=== PATIENT | female | born 1950 | race Caucasian/White ===

== ENCOUNTER 2018-04-02 19:35 | Emergency (ER) | payer MEDICARE, OTHER ==
[2018-04-02] MEDS ORDERED: SODIUM CHLORIDE 0.9% 1,000 ML IV STA (19:57)
--- NOTE | 2018-04-02 19:58 | ED ---
General Adult HPI - General Chief complaint: Neuro Symptoms/Deficit Stated complaint: Left facial weakness Time Seen by Provider: 04/02/18 19:48 Source: patient, RN notes reviewed Mode of arrival: wheelchair Limitations: no limitations - History of Present Illness Initial comments: Patient is a pleasant 67-year-old female presenting to the emergency Department with complaints of left facial weakness. Onset of symptoms was yesterday around noon. Symptoms seemed to have worsened since that time. Patient notices when she tries to eat or drink there is some leaking from the left side of her mouth. No confusion. Patient did have a mild frontal headache earlier. Patient has had some chronic neck discomfort for the past several months. No speech problems. No extremity weakness. No paresthesias or loss of sensation. No history of similar symptoms previously. - Related Data Home Medications Medication Instructions Recorded Confirmed Biotin 5 mg PO DAILY 04/02/18 04/02/18 Ibgard 1 tab PO DAILY 04/02/18 04/02/18 L.acidoph,Paracasei, B.lactis 1 cap PO DAILY 04/02/18 04/02/18 [Probiotic] Levothyroxine Sodium 100 mcg PO DAILY 04/02/18 04/02/18 [place] 1 tab PO DAILY 04/02/18 04/02/18 Multivitamins, Thera [Multivitamin 1 tab PO DAILY 04/02/18 04/02/18 (formulary)] Omeprazole 20 mg PO DAILY 04/02/18 04/02/18 Ranitidine HCl [Zantac] 300 mg PO BID 04/02/18 04/02/18 Previous Rx's Medication Instructions Recorded predniSONE 20 mg PO TID #20 tab 04/03/18 valACYclovir HCL [Valtrex] 1 tab PO TID #20 tablet 04/03/18 Allergies Allergy/AdvReac Type Severity Reaction Status Date / Time No Known Allergies Allergy Verified 04/02/18 20:41 Review of Systems ROS Statement: Those systems with pertinent positive or pertinent negative responses have been documented in the HPI. ROS Other: All systems not noted in ROS Statement are negative. Constitutional: Denies: fever Eyes: Reports: other (Left eye does feel dry). Denies: eye pain ENT: Denies: ear pain Respiratory: Denies: cough Cardiovascular: Denies: chest pain Endocrine: Denies: fatigue Gastrointestinal: Denies: abdominal pain Genitourinary: Denies: dysuria Musculoskeletal: Denies: back pain Skin: Denies: rash Neurological: Reports: weakness (Left side of face). Denies: confusion Past Medical History Past Medical History: No Reported History History of Any Multi-Drug Resistant Organisms: None Reported Past Surgical History: Cholecystectomy, Hysterectomy, Orthopedic Surgery Past Psychological History: No Psychological Hx Reported Smoking Status: Never smoker Past Alcohol Use History: None Reported Past Drug Use History: None Reported General Exam Limitations: no limitations General appearance: alert, in no apparent distress Head exam: Present: atraumatic Eye exam: Present: normal appearance, PERRL, EOMI. Absent: nystagmus ENT exam: Present: normal oropharynx Neck exam: Present: normal inspection Respiratory exam: Present: normal lung sounds bilaterally Cardiovascular Exam: Present: regular rate, normal rhythm GI/Abdominal exam: Present: soft. Absent: tenderness Extremities exam: Present: normal inspection Neurological exam: Present: alert, CN II-XII intact (Except for left facial weakness that does include the forehead and eyelid muscles), other (Left facial weakness is present that does involve the forehead). Absent: motor sensory deficit Expanded Neurological exam: Present: protecting the airway Patient oriented to: Present: person, place, time Speech: Present: fluid speech Cranial nerves: EOM's Intact: Normal Cerebellar function: Finger to Nose: Normal Sensory exam: Upper Extremity Light Touch: Normal, Lower Extremity Light Touch: Normal Motor strength exam: RUE: 5, LUE: 5, RLE: 5, LLE: 5 Eye Response: (4) open spontaneously Motor Response: (6) obeys commands Verbal Response: (5) oriented Psychiatric exam: Present: normal affect, normal mood Skin exam: Present: normal color Course Vital Signs 04/02/18 04/02/18 04/02/18 19:37 19:45 20:00 Temperature 97.8 F Pulse Rate 73 60 62 Respiratory 18 18 18 Rate Blood Pressure 174/91 161/72 171/77 O2 Sat by Pulse 99 99 98 Oximetry 04/02/18 22:29 Temperature Pulse Rate 64 Respiratory 17 Rate Blood Pressure 142/81 O2 Sat by Pulse 98 Oximetry Medical Decision Making - Medical Decision Making Patient reevaluated and updated. - Lab Data Result diagrams: 04/02/18 20:45 04/02/18 20:45 Lab Results 04/02/18 04/02/18 04/02/18 Range/Units 20:45 20:45 20:45 WBC 5.3 (3.8-10.6) k/uL RBC 4.50 (3.80-5.40) m/uL Hgb 14.1 (11.4-16.0) gm/dL Hct 42.9 (34.0-46.0) % MCV 95.4 (80.0-100.0) fL MCH 31.4 (25.0-35.0) pg MCHC 32.9 (31.0-37.0) g/dL RDW 13.3 (11.5-15.5) % Plt Count 229 (150-450) k/uL Neutrophils % 64 % Lymphocytes % 25 % Monocytes % 6 % Eosinophils % 3 % Basophils % 1 % Neutrophils # 3.4 (1.3-7.7) k/uL Lymphocytes # 1.3 (1.0-4.8) k/uL Monocytes # 0.3 (0-1.0) k/uL Eosinophils # 0.2 (0-0.7) k/uL Basophils # 0.0 (0-0.2) k/uL PT 9.5 (9.0-12.0) sec INR 1.0 (<1.2) APTT 24.2 (22.0-30.0) sec Sodium 139 (137-145) mmol/L Potassium 4.4 (3.5-5.1) mmol/L Chloride 106 (98-107) mmol/L Carbon Dioxide 26 (22-30) mmol/L Anion Gap 7 mmol/L BUN 19 H (7-17) mg/dL Creatinine 0.86 (0.52-1.04) mg/dL Est GFR (CKD-EPI)AfAm 82 (>60 ml/min/1.73 sqM) Est GFR (CKD-EPI)NonAf 71 (>60 ml/min/1.73 sqM) Glucose 98 (74-99) mg/dL Calcium 9.4 (8.4-10.2) mg/dL Total Bilirubin 0.3 (0.2-1.3) mg/dL AST 25 (14-36) U/L ALT 44 (9-52) U/L Alkaline Phosphatase 108 (38-126) U/L Total Protein 6.2 L (6.3-8.2) g/dL Albumin 3.7 (3.5-5.0) g/dL - Radiology Data Radiology results: report reviewed (Computed tomography scan the brain shows no acute process. CT angiogram of the head and neck shows no acute process) Disposition Clinical Impression: Carter's palsy Disposition: HOME SELF-CARE Condition: Stable Instructions: Carter Palsy (ED) Additional Instructions: Apply Lacri-Lube to left eye every 4 hours while awake and prior to going to bed. Please tape her eye shut at bedtime. These follow-up with primary care physician in the next couple of days for recheck. Prescriptions: predniSONE 20 mg PO TID #20 tab valACYclovir HCL [Valtrex] 1 tab PO TID #20 tablet Is patient prescribed a controlled substance at d/c from ED?: No Referrals: Vesta Dao MD [STAFF PHYSICIAN] - 1-2 days Time of Disposition: 00:07
[2018-04-02 20:55] LABS: Basophils % (A) 1 %; Eosinophils # (A) 0.2 k/uL (0-0.7); Eosinophils % (A) 3 %; HCT 42.9 % (34.0-46.0); HGB 14.1 gm/dL (11.4-16.0); Lymphocytes # (A) 1.3 k/uL (1.0-4.8); Lymphocytes % (A) 25 %; MCH 31.4 pg (25.0-35.0); MCHC 32.9 g/dL (31.0-37.0); MCV 95.4 fL (80.0-100.0); Mean Platelet Volume 6.7; Monocytes # (A) 0.3 k/uL (0-1.0); Monocytes % (A) 6 %; Neutrophils # (A) 3.4 k/uL (1.3-7.7); Neutrophils % (A) 64 %; Platelet Count 229 k/uL (150-450); RDW 13.3 % (11.5-15.5); WBC 5.3 k/uL (3.8-10.6)
[2018-04-02 21:03] LABS: Partial Thromboplastin Time 24.2 sec (22.0-30.0); Prothrombin Time 9.5 sec (9.0-12.0)
[2018-04-02 21:12] LABS: Albumin 3.7 g/dL (3.5-5.0); Calcium 9.4 mg/dL (8.4-10.2); Potassium 4.4 mmol/L (3.5-5.1); Total Bilirubin 0.3 mg/dL (0.2-1.3); Total Protein 6.2 g/dL (6.3-8.2)
--- NOTE | 2018-04-02 23:17 | CT ---
EXAM: CT Head Without Intravenous Contrast CLINICAL HISTORY: ITS.REASON CT Reason: weak TECHNIQUE: Axial computed tomography images of the head/brain without intravenous contrast. CTDI is 59.43 mGy and DLP is 1167.78 mGy-cm. This CT exam was performed using one or more of the following dose reduction techniques: automated exposure control, adjustment of the mA and/or kV according to patient size, and/or use of iterative reconstruction technique. COMPARISON: No relevant prior studies available. FINDINGS: Brain: Unremarkable. No hemorrhage. No significant white matter disease. No edema. Ventricles: Unremarkable. No ventriculomegaly. Bones/joints: Unremarkable. No acute fracture. Soft tissues: Unremarkable. Sinuses: Unremarkable as visualized. No acute sinusitis. Mastoid air cells: Unremarkable as visualized. No mastoid effusion. IMPRESSION: Normal for age.
--- NOTE | 2018-04-02 23:28 | CT ---
EXAM: CT Angiography Head With Intravenous Contrast CLINICAL HISTORY: ITS.REASON CT Reason: weakness TECHNIQUE: Axial computed tomographic angiography images of the head with intravenous contrast using CT angiography protocol. DLP: 451.[address] exam was performed using one or more of the following dose reduction techniques: automated exposure control, adjustment of the mA and/or kV according to patient size, and/or use of iterative reconstruction technique. MIP reconstructed images were created and reviewed. COMPARISON: No relevant prior studies available. FINDINGS: Right internal carotid artery: No acute findings. Intracranial segment is patent with no significant stenosis. No aneurysm. Right anterior cerebral artery: Unremarkable. No occlusion or significant stenosis. No aneurysm. Right middle cerebral artery: Unremarkable. No occlusion or significant stenosis. No aneurysm. Right posterior cerebral artery: Unremarkable. No occlusion or significant stenosis. No aneurysm. Right vertebral artery: Unremarkable as visualized. Left internal carotid artery: No acute findings. Intracranial segment is patent with no significant stenosis. No aneurysm. Left anterior cerebral artery: Unremarkable. No occlusion or significant stenosis. No aneurysm. Left middle cerebral artery: Unremarkable. No occlusion or significant stenosis. No aneurysm. Left posterior cerebral artery: Unremarkable. No occlusion or significant stenosis. No aneurysm. Left vertebral artery: Unremarkable as visualized. Basilar artery: Unremarkable. No occlusion or significant stenosis. No aneurysm. IMPRESSION: No significant stenosis, thrombosis, aneurysm or dissection. EXAM: CT Angiography Neck With Intravenous Contrast CLINICAL HISTORY: ITS.REASON CT Reason: weakness TECHNIQUE: Axial computed tomographic angiography images of the neck with intravenous contrast using CT angiography protocol. DLP: 451.[address] exam was performed using one or more of the following dose reduction techniques: automated exposure control, adjustment of the mA and/or kV according to patient size, and/or use of iterative reconstruction technique. MIP reconstructed images were created and reviewed. COMPARISON: No relevant prior studies available. FINDINGS: VASCULATURE: Right common carotid artery: Unremarkable. No significant stenosis. No dissection or occlusion. Right internal carotid artery: Unremarkable. Extracranial segment is patent with no significant stenosis. No dissection or occlusion. Right external carotid artery: Unremarkable. No occlusion. Right vertebral artery: Unremarkable. No significant stenosis. No dissection or occlusion. Left common carotid artery: Unremarkable. No significant stenosis. No dissection or occlusion. Left internal carotid artery: Unremarkable. Extracranial segment is patent with no significant stenosis. No dissection or occlusion. Left external carotid artery: Unremarkable. No occlusion. Left vertebral artery: Unremarkable. No significant stenosis. No dissection or occlusion. NECK: Bones/joints: No acute fracture. No dislocation. Soft tissues: Unremarkable as visualized. No mass. Lung apices: Nonspecific groundglass opacities and interlobular septal thickening at the upper lobes. Superior mediastinal lipomatosis. CAROTID STENOSIS REFERENCE USING NASCET CRITERIA: % ICA stenosis = (1 - narrowest ICA diameter/diameter of distal cervical ICA) x 100. Mild - <50% stenosis. Moderate - 50-69% stenosis. Severe - 70-94% stenosis. Near occlusion - 95-99% stenosis. Occluded - 100% stenosis.
[2018-04-03] MEDS ORDERED: predniSONE 20 MG TAB PO STA (00:03)
[2018-04-03] MEDS ORDERED: valACYclovir 500 MG TAB PO STA (00:04)
[2018-04-03 00:35] VITALS: BP 165/77; PULSE 78; RESP 18; TEMP 98.2
== END 2018-04-03 00:34 | disposition home or self-care (01) ==
LOC: EC 19:35
DX: G51.0 Bell's palsy (principal); Z79.899 Other long term (current) drug therapy
CPT/HCPCS: 99284 ×2; 96360 ×2; 96361 ×3; 36415; 80053; 85025; 85610; 85730; 70496; 70450; 70498; J7512; Q9967

== ENCOUNTER → 2019-03-21 | Outpatient (CLI) | payer MEDICARE ==
--- NOTE | 2019-03-25 09:13 | MM ---
Reason for exam: screening (asymptomatic). Last mammogram was performed 2 years and 11 months ago. History: Patient is postmenopausal and history of other cancer. Right Breast Aspiration of the right breast, 2011. Benign right mammotome panel of the right breast, April 30, 2009. Took estrogen for 8 years 10 months beginning at age 50. Physical Findings: A clinical breast exam by your physician is recommended on an annual basis and results should be correlated with mammographic findings. MG 3D Screening Mammo W/Cad Bilateral CC and MLO view(s) were taken. Prior study comparison: May 01, 2016, bilateral MG diagnostic mammo w CAD [facility]. May 08, 2014, bilateral MG screening mammo w CAD. There are scattered fibroglandular densities. Previous mammotome biopsy in the right breast x 2. No significant changes when compared with prior studies. ASSESSMENT: Benign, BI-RAD 2 RECOMMENDATION: Routine screening mammogram of both breasts in 1 year.
== END | disposition home or self-care (01) ==
LOC: RADMAMWWP 08:43
PROVIDERS: ATTEND Family Medicine
DX: Z12.31 Encounter for screening mammogram for malignant neoplasm of breast (principal)
CPT/HCPCS: 77063; 77067

== ENCOUNTER → 2021-04-05 | Outpatient (CLI) | payer MEDICARE ==
--- NOTE | 2021-04-06 13:54 | MM ---
Reason for exam: screening (asymptomatic). Last mammogram was performed 2 years ago. History: Patient is postmenopausal and has history of other cancer at age 70. Right Breast Aspiration of the right breast, 2011. Benign right mammotome panel of the right breast, April 30, 2009. Took estrogen for 8 years 10 months beginning at age 50. Physical Findings: A clinical breast exam by your physician is recommended on an annual basis and results should be correlated with mammographic findings. MG 3D Screening Mammo W/Cad Bilateral CC and MLO view(s) were taken. Prior study comparison: March 21, 2019, bilateral MG 3d screening mammo w/cad. May 01, 2016, bilateral MG diagnostic mammo w CAD [facility]. There are scattered fibroglandular densities. Previous mammotome biopsy in the right breast. No significant changes when compared with prior studies. ASSESSMENT: Negative, BI-RAD 1 RECOMMENDATION: Routine screening mammogram of both breasts in 1 year.
== END | disposition home or self-care (01) ==
LOC: RADMAMWWP 10:06
PROVIDERS: ATTEND Family Medicine
DX: Z12.39 Encounter for other screening for malignant neoplasm of breast (principal); R92.8 Other abnormal and inconclusive findings on diagnostic imaging of breast; N64.9 Disorder of breast, unspecified
CPT/HCPCS: 77063; 77067

== ENCOUNTER → 2022-04-19 | Outpatient (CLI) | payer MEDICARE ==
--- NOTE | 2022-04-21 18:45 | MM ---
Reason for Exam: Screening (asymptomatic). Last mammogram was performed 1 year(s) and 1 month(s) ago. Patient History: Menarche at age 14. First Full-Term at age 22. Left ovary removed at age 50. Right ovary removed at age 50. Hysterectomy at age 50. Postmenopausal. Other cancer, age 70. Estrogen for 8 years, 10 months, from age 50 until age 58. 2011, Cyst Aspiration on the Right side. 04/30/2009, Benign Core Biopsy on the right side. Risk Values: Cheryl 5 year model risk: 1.8%. NCI Lifetime model risk: 5.3%. Prior Study Comparison: 05/01/2016 Bilateral Diagnostic Mammogram, [facility]. 03/21/2019 Bilateral Screening Mammogram, [facility]. 04/05/2021 Bilateral Screening Mammogram, [facility]. Tissue Density: The breast tissue is almost entirely fat. Findings: Analyzed By CAD. There is no suspicious group of microcalcifications or new suspicious mass in either breast. Overall Assessment: Negative, BI-RAD 1 Management: Screening Mammogram of both breasts in 1 year. A clinical breast exam by your physician is recommended on an annual basis and results should be correlated with mammographic findings. Electronically signed and approved by: Rodri Garcia DO
== END | disposition home or self-care (01) ==
LOC: RADMAMWWP 11:00
PROVIDERS: ATTEND Family Medicine
DX: Z12.31 Encounter for screening mammogram for malignant neoplasm of breast (principal); Z78.0 Asymptomatic menopausal state
CPT/HCPCS: 77063; 77067

== ENCOUNTER → 2023-04-20 | Outpatient (CLI) | payer MEDICARE ==
--- NOTE | 2023-04-23 10:26 | MM ---
Reason for Exam: Screening (asymptomatic). Last screening mammogram was performed 12 month(s) ago. Patient History: Menarche at age 14. First Full-Term at age 22. Left ovary removed at age 50. Right ovary removed at age 50. Hysterectomy at age 50. Postmenopausal. Other cancer, age 70. Estrogen for 8 years, 10 months, from age 50 until age 58. 2011, Cyst Aspiration on the Right side. 04/30/2009, Benign Core Biopsy on the right side. Mother had ovarian cancer, age 65. Sister had ovarian cancer, age 58. Risk Values: Cheryl 5 year model risk: 1.8%. NCI Lifetime model risk: 5.1%. Prior Study Comparison: 03/21/2019 Bilateral Screening Mammogram, [facility]. 04/05/2021 Bilateral Screening Mammogram, [facility]. 04/19/2022 Bilateral MG 3D screening mammo w/cad, [facility]. Tissue Density: The breast tissue is almost entirely fat. Findings: Analyzed By CAD. There is no suspicious group of microcalcifications or new suspicious mass. Overall Assessment: Negative, BI-RAD 1 Management: Screening Mammogram of both breasts in [address] [facility] will attempt to contact patient to return for supplemental views and ultrasound if indicated. Patient should continue monthly self-breast exams. A clinical breast exam by your physician is recommended on an annual basis. This exam should not preclude additional follow-up of suspicious palpable abnormalities. Note on Cheryl scores and lifetime risk: 1. A Cheryl score greater than 3% is considered moderate risk. If this is the case, consider specialist referral to assess eligibility for a risk reducing agent. 2. If overall lifetime risk for the development of breast cancer is 20% or higher, the patient may qualify for future screening with alternating mammogram and breast MRI. Electronically signed and approved by: Rodri Garcia DO
== END | disposition home or self-care (01) ==
LOC: RADMAMWWP 10:12
PROVIDERS: ATTEND Family Medicine
DX: Z12.31 Encounter for screening mammogram for malignant neoplasm of breast (principal); Z78.0 Asymptomatic menopausal state
CPT/HCPCS: 77063; 77067